=== PATIENT | male | born 1960 | race Caucasian/White ===

== ENCOUNTER 2021-03-22 13:57 | Outpatient (CLI) | payer OTHER, SELFPAY ==
--- NOTE | ~2021-03-22 | US_ITS ---
EXAMINATION: US art doppler w press LE BI DATE: 03/22/2021 15:16 INDICATION: Ascites of skin. Right anterior calf and bilateral foot pain. Smoker. TECHNIQUE: Segmental pressures and plethysmographic and Doppler waveforms of the brachial and lower e xtremity arteries were obtained. COMPARISON: None. FINDINGS: Right and left brachial artery pressures of 131 mm Hg and 132 mm Hg, respectively, are concordant (no rmal difference <= 30 mmHg). The right and left high-thigh pressure indices are 0.96 and 0.98, respec tively (normal > 1.2). The right ankle-brachial index (PEDRO) is 1.10 (normal >= 0.9-1). The right great toe-brachial index (T BI) is 0.92 (normal >= 0.6-0.8). The right lower extremity segmental pressure gradients are normal (n ormal gradients <= 20-30 mmHg between adjacent levels on the same leg or the same levels on the two l egs). Arterial waveforms are triphasic at the right superficial and popliteal arteries and biphasic a t the right common femoral, posterior tibial and dorsalis pedis arteries with brisk systolic upstroke s throughout. The left PEDRO is 1.14. The left TBI is 1.12. The left lower extremity segmental pressure gradients are normal. Arterial waveforms are triphasic at the left, femoral, superficial femoral and popliteal art eries and biphasic at the left posterior tibial and dorsalis pedis arteries with brisk systolic upstr okes throughout. IMPRESSION: 1. Normal PEDRO's and TBI's bilaterally. No significant occlusive disease. Reviewed, dictated and finalized at location A.
== END 2021-03-22 13:58 | disposition home or self-care (01) ==
LOC: ANHIMG 14:01
PROVIDERS: PCP Family Medicine; Visit Provider Nurse Practitioner Family
DX: R20.0 Anesthesia of skin (principal); R20.2 Paresthesia of skin; Z72.0 Tobacco use
CPT/HCPCS: 93923

== ENCOUNTER 2021-11-06 00:38 | Day surgery (SDC) | payer OTHER, SELFPAY ==
[2021-10-23 13:42] VITALS: BMI 21.8
[2021-11-06 09:16] VITALS: BMI 20.2
--- NOTE | 2021-11-06 09:18 | WPDANESEPPF ---
Anes - Initial Pre Proc Eval Procedure: Operation Date: 11/06/21 10:30 Proposed Procedures p Screening Colonoscopy - Akshat Segura MD Date/Time: 11/06/21 09:18 Surgeon: Akshat Segura MD Pre Op Diagnosis: hx of colon polyps Patient Data Age: 61 Gender: M Height: 1.68 m Weight: 61.3 kg Allergies Allergy/AdvReac Type Severity Reaction Status Date / Time Sulfa (Sulfonamide Allergy Unknown Unknown Verified 10/23/21 13:59 Antibiotics) Home Medications Medication Instructions Recorded Confirmed Type No Home Medications 10/23/21 10/23/21 History Patient hx anesthesia problems: none Family hx anesthesia problems: none Results Review: All pre-operative results and documents have been reviewed as part of the pre-operative evaluation. [facility] Past Medical History Medical History Adult BMI 19-24 kg/sq m AK (actinic keratosis) Hepatitis B virus serologic status unknown SK (seborrheic keratosis) Family History Family History Father Cerebrovascular accident Social History Social History Smoking packs per day: 2 Smoking cigarettes per day: 40.0 Years smoked: 40 Smoking pack-years: 80.00 Smoking status: Current every day smoker Tobacco type: cigarettes Second hand tobacco smoke exposure: No Alcohol intake: current Drinks per week: 80 Alcohol use details: 10-12 beers daily Substance use: current Substance use type: marijuana Other substance usage details: occasional use, not daily Living arrangements: with family Gender identity (if verbalized by the patient): Male Sexual Orientation (if Verbalized by the Patient): Straight or Heterosexual Spiritual care concerns: No Anes - Eval Final PreProcedure Day of Procedure 11/06/21 09:18 Patient weight: normal Heart: regular rate and rhythm Lungs: clear to auscultation Airway: Mallampati scale class II Neurological: alert and oriented Last oral intake: >/= 8 hours ASA classification: III Emergent: no Anesthetic plan: proceed Anesthesia type and monitoring: general GIVS and standard monitoring Results Review: All pre-operative results and documents have been reviewed as part of the pre-operative evaluation. Informed Consent: The patient's anesthetic plan and its attendant risks and benefits were discussed with the patient/family/POA. Questions were solicited and answers provided to the satisfaction of the patient/family/POA.
[2021-11-06 09:27] VITALS: BP 147/80; PULSE 66; RESP 18; TEMP 36.1; O2SAT 100
[2021-11-06] MEDS: LACTATED RINGERS 1,000 ML 150 ML IV CONT (09:36)
--- NOTE | 2021-11-06 09:59 | PM.IMHP ---
H&P: HPI History of Present Illness Date/Time: 11/06/21 09:59 Chief Complaint: History of colon polyps. Narrative: This is a 61-year-old white male patient referred for because of prior history of colon polyps. Patient reports he has had diarrhea for more than 3 years. He reports over that 3 year intervals lost perhaps 25lb. He states his appetite is somewhat diminished. He denies any bleeding. His family history is noncontributory. Patient presents today for neoplasia screening because of a history of colon polyp removed in 2016. Review of Systems Review of Systems: review of systems noncontributory. [facility] Past Medical History Medical History Adult BMI 19-24 kg/sq m AK (actinic keratosis) Hepatitis B virus serologic status unknown SK (seborrheic keratosis) Family History Family History Father Cerebrovascular accident Social History Social History Smoking packs per day: 2 Smoking cigarettes per day: 40.0 Years smoked: 40 Smoking pack-years: 80.00 Smoking status: Current every day smoker Tobacco type: cigarettes Second hand tobacco smoke exposure: No Alcohol intake: current Drinks per week: 80 Alcohol use details: 10-12 beers daily Substance use: current Substance use type: marijuana Other substance usage details: occasional use, not daily Living arrangements: with family Gender identity (if verbalized by the patient): Male Sexual Orientation (if Verbalized by the Patient): Straight or Heterosexual Spiritual care concerns: No Meds Home Medications and Allergies Home Medications Medication Instructions Recorded Confirmed Type No Home Medications 10/23/21 10/23/21 History Allergies Allergy/AdvReac Type Severity Reaction Status Date / Time Sulfa (Sulfonamide Allergy Unknown Unknown Verified 10/23/21 13:59 Antibiotics) Vital Signs Vital Signs - 24 hr 11/06/21 09:27 Temperature 97.0 F L Pulse Rate 66 Respiratory Rate 18 Blood Pressure 147/80 H Pulse Oximetry 100 Oxygen Delivery Room Air Exam Narrative: Physical exam reveals patient to be alert. Vital signs stable. HEENT exam is unremarkable. Patient is anicteric. Lungs are clear to auscultation and percussion. Heart is without murmur or extra sounds. Abdominal exam bowel sounds are present soft nontender with no organomegaly. Digital external rectal exam is normal. Assessment and Plan Assessment and plan (1) History of colon polyps: Code(s): Z86.010 - Personal history of colonic polyps Status: Acute Assessment and Plan: Patient presents today for screening colonoscopy because of prior history of tubulovillous adenoma in 2016. Further recommendations will be given after endoscopy. Follow-up typically at 5 year intervals is encouraged.
[2021-11-06] MEDS: SIMETHICONE ORAL SUSPENSION 20 MG/0.3 ML 30 ML BOTTLE 0.6 ML IRRIGATION (10:16)
[2021-11-06 10:35] VITALS: BP 137/88; PULSE 71; RESP 26; O2SAT 100
[2021-11-06 10:45] VITALS: BP 159/99; PULSE 65; RESP 20; O2SAT 100
[2021-11-06 10:55] VITALS: BP 161/94; PULSE 71; RESP 20; O2SAT 98
== END 2021-11-06 10:58 | disposition home or self-care (01) ==
PROVIDERS: PCP Family Medicine; Visit Provider Internal Medicine Gastroenterology
PROC: 0DJD8ZZ Inspection of Lower Intestinal Tract, Via Natural or Artificial Opening Endoscopic (ICD-10-PCS; CPT 45378; principal; 2021-11-06 10:30)
DX: K59.1 Functional diarrhea (principal); D12.5 Benign neoplasm of sigmoid colon; K64.8 Other hemorrhoids; L57.0 Actinic keratosis; L82.1 Other seborrheic keratosis; B19.10 Unspecified viral hepatitis B without hepatic coma; F17.210 Nicotine dependence, cigarettes, uncomplicated; F12.90 Cannabis use, unspecified, uncomplicated
CPT/HCPCS: 45385; 45380; 88305; J2704; J7120

== ENCOUNTER 2022-10-09 12:12 | Outpatient (CLI) | payer OTHER, SELFPAY ==
--- NOTE | ~2022-10-09 | XR_ITS ---
XR chest 2V 10/09/2022 12:46 Indication: Hemoptysis. Procedure: 2 view chest Comparison: 11/09/2016 Findings: There is extensive right upper lobe consolidation, consistent with pneumonia. Possible asso ciated cavitation. Heart size normal. Left lung clear. No pneumothorax. Impression: 1: Extensive right upper lobe consolidation, consistent with pneumonia with possible cavitation. Reviewed, dictated and finalized at location L. Impression: 1: Extensive right upper lobe consolidation, consistent with pneumonia with pos sible cavitation.
--- NOTE | ~2022-10-09 | XR_ITS ---
XR femur RT min 2V 10/09/2022 12:45 Indication: Bilateral leg pain Procedure: 2 views right femur Comparison: No prior studies for comparison. Findings: There is anatomic alignment. Mild osteoarthritis of the right hip. No fracture, subluxation or dislocation. There are vascular calcifications. No foreign bodies. Impression: 1: No acute bone or joint abnormality. Reviewed, dictated and finalized at location B. Impression: 1: No acute bone or joint abnormality.
--- NOTE | ~2022-10-09 | XR_ITS ---
XR femur LT min 2V 10/09/2022 12:46 Indication: Leg pain. Procedure: 2 views left femur Comparison: No prior studies for comparison. Findings: There is anatomic alignment. Mild osteoarthritis of the left hip. No fracture, subluxation or dislocation. There are vascular calcifications. No foreign bodies. Impression: 1: No acute bone or joint abnormality. Reviewed, dictated and finalized at location B. Impression: 1: No acute bone or joint abnormality.
[2022-10-09 13:00] LABS: Basophils Absolute Auto 0.1 K/mm3 (0.0-0.1); Basophils Percent Auto 0.3 % (0.2-1.2); Eosinophils Absolute Auto 0.2 K/mm3 (0-0.3); Eosinophils Percent Auto 1.1 % (0-4.4); Hematocrit 36.3 % (42.0-52.0); Hemoglobin 11.4 g/dL (14.0-18.0); Immature Granulocyte Absolute 0.11 K/mm3 (0.00-0.031); Immature Granulocyte Percent A 0.6 % (0-0.5); Lymphocytes Absolute Auto 1.41 K/mm3 (0.9-3.2); Mean Corpuscular HGB Conc 31.4 g/dl (32-36); Mean Corpuscular Volume 92.4 fl (80-100); Mean Platelet Volume 8.8 fl (7.4-10.4); Monocytes Absolute Auto 1.1 K/mm3 (0.1-0.6); Monocytes Percent Auto 6.5 % (2.6-8.5); Neutrophils Absolute Auto 14.7 K/mm3 (1.3-6.7); Neutrophils Percent Auto 83.5 % (45.5-73.1); Platelet Count Result 374 k/mm3 (150-375); Red Blood Count 3.93 M/mm3 (4.6-6.20); Red Cell Distribution Width 13.7 % (11.5-14.5); White Blood Count 17.6 K/mm3 (4.5-10.0)
[2022-10-09 13:11] LABS: Prothrombin Time 13.7 Seconds (11.1-14.7)
[2022-10-09 13:12] LABS: Partial Thromboplastin Time 37.9 SECONDS (22.3-36.8)
[2022-10-09 13:17] LABS: Alanine Aminotransferase 32 U/L (6-50); Alkaline Phosphatase 119 U/L (38-126); Anion Gap 11 mmol/L (8-16); Aspartate Amino Transferase 24 U/L (17-59); Bilirubin,Total 0.6 mg/dL (0.2-1.3); Blood Urea Nitrogen 10 mg/dL (9-20); Calcium 8.8 mg/dL (8.4-10.2); Carbon Dioxide 29 mmol/L (22-30); Chloride 91 mmol/L (98-107); Estimated Glomerular Filt Rate > 60; Glucose 119 mg/dL (65-110); Potassium 4.1 mmol/L (3.4-5.0); Sodium 131 mmol/L (137-145)
[2022-10-09 13:41] LABS: Vitamin D 25 Hydroxy 22.9 ng/mL
[2022-10-13 14:41] LABS: GGT 31 U/L (3-70)
== END 2022-10-09 12:13 | disposition home or self-care (01) ==
LOC: ANHLAB 12:15
PROVIDERS: PCP Family Medicine; Visit Provider Family Medicine
DX: R04.2 Hemoptysis (principal); M79.661 Pain in right lower leg; M79.662 Pain in left lower leg; R63.4 Abnormal weight loss; F10.10 Alcohol abuse, uncomplicated; R58 Hemorrhage, not elsewhere classified; Z12.5 Encounter for screening for malignant neoplasm of prostate; E55.9 Vitamin D deficiency, unspecified; R91.8 Other nonspecific abnormal finding of lung field
CPT/HCPCS: 36415; 71046; 73552; 80053; 82306; 82746; 82977; 84153; 84443; 85025; 85610; 85730; G0103

== ENCOUNTER 2022-10-25 10:24 | Outpatient (CLI) | payer OTHER, SELFPAY ==
--- NOTE | ~2022-10-25 | XR_ITS ---
XR chest 2V DATE: 10/25/2022 10:41 INDICATION: Pneumonia TECHNIQUE: PA and lateral views 10/09/2022 COMPARISON: PA and lateral chest 11/09/2016 two-view chest FINDINGS: There is prominent right apical capping. There is prominent patchy consolidating infiltrate in the right upper lobe, mildly improved since 10/09/2022. The remaining lung chamberlain are clear of infiltrate or consolidation. Pulmonary hyperinflation, increased retrosternal airspace, relative flattening the diaphragm, consist ent with COPD. No pleural effusion or pulmonary vascular congestion or pneumothorax is detected. Mild dextroscoliosis of the thoracic spine. Degenerative spurring of the thoracic spine. Osteopenia. IMPRESSION: Mild improvement of patchy right upper lobe consolidation since 10/09/2022 Reviewed, dictated and finalized at location L. IMPRESSION: Mild improvement of patchy right upper lobe consolidation since 09/18
[2022-10-25 12:09] LABS: Prostate Specific Antigen 7.8 ng/mL (< OR = 4.0)
[2022-10-25 13:24] LABS: Folic Acid 8.3 ng/mL (2.76->20)
== END 2022-10-25 10:25 | disposition home or self-care (01) ==
LOC: ANHLAB 10:24
PROVIDERS: PCP Family Medicine; Visit Provider Nurse Practitioner Family
DX: D64.9 Anemia, unspecified (principal); J18.9 Pneumonia, unspecified organism; Z12.5 Encounter for screening for malignant neoplasm of prostate
CPT/HCPCS: 36415; 71046; 82746; 84153; G0103

== ENCOUNTER 2022-11-13 10:59 | Outpatient (CLI) | payer OTHER, SELFPAY ==
--- NOTE | ~2022-11-13 | XR_ITS ---
Clinical Indication: Pneumonia PA and lateral views of the chest: Comparison: 10/25/2022 Findings: There is persistent right upper lobe airspace consolidation, compatible with pneumonia. Lef t lung clear.. Cardiomediastinal silhouette is within normal limits. Bones and soft tissues are unre markable. Impression: Persistent right upper lobe pneumonia. Follow-up to radiographic resolution is advised. Reviewed, dictated and finalized at location . Impression: Persistent right upper lobe pneumonia. Follow-up to radiographic resolution is advised.
== END 2022-11-13 11:00 | disposition home or self-care (01) ==
LOC: ANHIMG 11:01
PROVIDERS: PCP Family Medicine; Visit Provider Physician Assistant Medical
DX: J18.9 Pneumonia, unspecified organism (principal)
CPT/HCPCS: 71046

== ENCOUNTER 2022-12-05 13:45 | Outpatient (CLI) | payer OTHER, SELFPAY ==
--- NOTE | ~2022-12-05 | CT_ITS ---
Clinical Indication: Pneumonia CT Scan of the Chest with Contrast: Technique: Contiguous sections were acquired throughout the chest after intravenous administration of 75 cc of Omnipaque 350. Dose reduction technique was used on this scan by utilizing automated exposu re control and iterative reconstruction technique. The dose-length product (DLP) was 158.10 mGy-cm. Findings: There is no evidence of any significant mediastinal, hilar or axillary lymphadenopathy. There is no f illing defect in the pulmonary arterial tree to suggest pulmonary embolus. There is no evidence of ao rtic dissection or aneurysm. There are atherosclerotic calcifications of the aorta and coronary arter ies There is no evidence of pleural or pericardial effusion. There is probable right apical scarring and focal bullous change, with focal cystic bronchiectatic ch maria eugenia. There are several areas of associated spiculated focal density/nodularity. There is a separate 2 cm nodular opacity in the medial right lower lobe in the infrahilar region (axial image 66). There is mild to moderate upper lobe emphysema bilaterally. Images through the upper abdomen reveal no abnormalities. Impression: 2 cm nodular masslike lesion in the right lower lobe in the infrahilar region. Diagnostic considerati ons include both infectious and neoplastic etiologies. Probable right apical scarring and focal bullous/cystic bronchiectatic change. There are several asso ciated focal areas of spiculated nodularity in this region, which are indeterminate. The spiculated a reas could reflect postinflammatory scarring, infection, or neoplastic disease. Consider PET/CT to evaluate the above findings, especially the right upper lobe lesions, for hypermet abolic activity. In regards to the right lower lobe lesion, consider short-term follow-up exam after interval therapy versus attempted tissue sampling, although the location of the lesion is somewhat ch allenging for percutaneous biopsy. Reviewed, dictated and finalized at [facility]. Impression: 2 cm nodular masslike lesion in the right lower lobe in the infrahilar region. Diagnostic considerations include both infectious and neoplastic etiologies. Probable right apical scarring and focal bullous/cystic bronchiectatic change. There are several associated focal areas of spiculated nodularity in this regio n, which are indeterminate. The spiculated areas could reflect postinflammatory scarring, infection, or neoplastic disease. Consider PET/CT to evaluate the above findings, especially the right upper lobe lesions, for hypermetabolic activity. In regards to the right lower lobe lesio n, consider short-term follow-up exam after interval therapy versus attempted t issue sampling, although the location of the lesion is somewhat challenging for percutaneous biopsy.
[2022-12-05 14:05] LABS: Estimated Glomerular Filt Rate > 60
== END 2022-12-05 13:46 ==
LOC: MICIMG 13:46
PROVIDERS: PCP Family Medicine; Visit Provider Physician Assistant Medical
DX: J18.9 Pneumonia, unspecified organism (principal); R91.8 Other nonspecific abnormal finding of lung field
CPT/HCPCS: 71260; Q9967

== ENCOUNTER 2022-12-10 07:30 | Outpatient (CLI) | payer OTHER, SELFPAY ==
--- NOTE | ~2022-12-10 | PE_ITS ---
EXAMINATION: PET skull to mid thigh DATE: 12/10/2022 10:26 INDICATION: Abnormal findings of lung TECHNIQUE: Blood glucose level was 106 mg/dL. 9.748 mCi of 18-fluorodeoxyglucose (18-FDG) was adminis tered i.v. Low dose computed tomography (CT) images were acquired from the base of the brain to the p roximal thighs for attenuation correction and anatomic localization. Positron emission tomography (PE T) images were acquired in the same distribution beginning 72 minutes after injection. Images includi ng fused PET/CT images were reconstructed in axial, coronal, and sagittal planes. Automated exposure control technique was employed. The dose-length product was 481.21mGy-cm. COMPARISON: None FINDINGS: Head/neck: There is symmetric increased activity in the oral cavity, palatine tonsils, parotid glands, submandi bular glands, laryngeal muscles and ocular muscles without CT correlate, likely physiologic. No patho logically enlarged cervical lymphadenopathy or suspicious foci of increased FDG uptake in the visuali zed head or neck. Chest: Moderate upper lung predominant emphysema. There is mild to moderate increased uptake with maximal PARADA V of 9.0 associated with a spiculated nodule at the parahilar/posteromedial right lower lobe. The nod ule previously measured 2.1 x 1.6 cm and appears slightly decreased in size measuring 2.0 x 1.1 cm in the current study now with small region of central lucency. Relatively stable appearance of a region of bandlike consolidation lung which are a few more focal spiculated nodular opacities in the right upper lobe. There are couple small, less than 1 cm foci of focal mild increased FDG uptake with maxim al SUV of 5.8 and 7.5 respectively located within the more medial paramediastinal bandlike region of consolidation. No evident specific correlate to the sulci of increased activity relative to the remai nder of the bandlike consolidation. There is a second focus of mild increased uptake with maximal SUV of 3.5 associated with one of the more nodular densities measuring approximately 12 mm centered on i mage 66. Finally there is a subtle focus of mild increased uptake with maximal SUV of 3.9 associated with an approximately 1 cm ill-defined groundglass opacity at the posterior segment of the right uppe r lobe along the major fissure. Mild dependent atelectasis in the bilateral lower lobes. No pulmonary edema or pleural effusion. Heart size is normal. Atherosclerotic coronary artery calcific location. No pericardial effusion. Atherosclerotic calcific lesion along the normal caliber thoracic aorta. No pathologically enlarged or abnormally FDG avid thoracic lymphadenopathy. Abdomen/pelvis/proximal thighs: Physiologic renal accumulation and excretion of FDG activity in the kidneys, bladder and along portio ns of ureters. Prominent nonspecific wall thickening of the bladder. Normal degree and heterogenous p attern of increased uptake throughout the liver without radiologic correlate or dominant FDG avid les ion. The gallbladder, pancreas, spleen and bilateral adrenal glands are normal. Mild to moderate upta ke scattered throughout the bowels without radiologic correlate, also likely physiologic. No other ab normal foci of increased FDG uptake or pathologically enlarged lymphadenopathy in the abdomen, pelvis or proximal thighs. Prominent atherosclerotic calcification along the right common femoral artery wh ich may be hemodynamically significant. Musculoskeletal: No suspicious lytic, blastic or FDG avid bone lesions identified. IMPRESSION: 1. Mild to moderate increased uptake associated with a now 2.0 x 1.1 cm spiculated nodule in the righ t lower lobe. The nodule appears slightly smaller and with new central lucency when compared with the earlier study suggesting an infectious or inflammatory etiology although malignancy cannot be absolu tely excluded. Consider short interval follow-up low-dose noncon
[2022-12-10 07:52] LABS: Glucose Point of Care 106 mg/dl (65-105)
== END 2022-12-10 07:31 | disposition home or self-care (01) ==
LOC: ANHIMG 07:37
PROVIDERS: PCP Family Medicine; Visit Provider Physician Assistant Medical
DX: R91.8 Other nonspecific abnormal finding of lung field (principal); R97.20 Elevated prostate specific antigen [PSA]; R04.2 Hemoptysis; R63.4 Abnormal weight loss
CPT/HCPCS: 78815; A9552

== ENCOUNTER 2023-02-13 11:05 | Outpatient (CLI) | payer OTHER, SELFPAY ==
--- NOTE | ~2023-02-13 | XR_ITS ---
XR chest 2V 02/13/2023 11:21 Indication: Covid 19 infection Procedure: 2 view chest Comparison: 11/13/2022 and 10/25/2022 Findings: Heart size normal. Interval near complete resolution of right upper lobe pneumonia. Left aida ng clear. No pleural effusion, edema or pneumothorax. There is right apical pleural thickening/scarri ng. Impression: 1: Near-complete resolution of right upper lobe pneumonia. Reviewed, dictated and finalized at location B. Impression: 1: Near-complete resolution of right upper lobe pneumonia.
== END 2023-02-13 11:06 | disposition home or self-care (01) ==
PROVIDERS: PCP Family Medicine; Visit Provider Nurse Practitioner Family
DX: U07.1 COVID-19 (principal); J12.82 Pneumonia due to coronavirus disease 2019
CPT/HCPCS: 71046

== ENCOUNTER 2023-08-29 23:07 | Emergency (ER) | payer MEDICARE, SELFPAY ==
--- NOTE | ~2023-08-29 | CT_ITS ---
EXAMINATION: CT abdomen pelvis w con DATE: 08/30/2023 01:43 INDICATION: Abdominal pain. Bloating. TECHNIQUE: Computed tomography (CT) of the abdomen and pelvis was performed with 100 mL Omnipaque 350 intravenous contrast. Automated exposure control and iterative reconstruction technique were employe d. The dose-length product was 216.16 mGy-cm. COMPARISON: None. FINDINGS: The visualized portions of the lung bases demonstrate mild atelectasis. No pleural effusion . The heart size is normal. No pericardial effusion. The liver, gallbladder, spleen, adrenal glands, and right kidney are normal. There are cysts in left kidney measuring up to 4 mm. There are calcifica tions in the pancreas, consistent with chronic pancreatitis. There is calcified atherosclerosis of th e aorta and many of the other arteries. The prostate is mildly enlarged. There are no dilated loops o f bowel. The appendix is normal. There are no pathologically enlarged lymph nodes. There is no free i ntraperitoneal fluid. There is moderate lumbar spondylosis. IMPRESSION: 1. No etiology for the patient's symptoms. Reviewed, dictated and finalized at location A.
[2023-08-29 23:08] VITALS: BP 165/91; PULSE 86; RESP 18; TEMP 36.3; O2SAT 98
--- NOTE | 2023-08-30 00:28 | ECG_ITS ---
SEE SCANNED COPY FOR CONFIRMED REPORT MTDD
--- NOTE | 2023-08-30 00:40 | ED.GENADULT ---
HPI - General Adult General Chief complaint: Abdominal Pain Stated complaint: lower abd pain x 2 hours with nausea Time Seen by Provider: 08/29/23 23:53 History of Present Illness HPI narrative: this is a 63-year-old male presenting for abdominal pain and fullness for 2 hours. Patient says that 9:00 p.m. he developed achy pain in the bottom of his abdomen. This 10 out 10 intensity and constant. He has never had this feeling before there are no exacerbating or alleviating factors. He did have 1 episode of nausea and vomiting. He denies fevers chills chest pain difficulty breathing. He has had a bowel movement today that was both constipation and diarrhea. Patient is a daily drinker. He does not remember the last day without alcohol. Related Data Allergies Allergy/AdvReac Type Severity Reaction Status Date / Time Sulfa (Sulfonamide Allergy Unknown Unknown Verified 06/05/23 07:55 Antibiotics) [facility] Past Medical History Medical History Adult BMI 19-24 kg/sq m AK (actinic keratosis) BPH w urinary obs/LUTS Ecchymosis Extraction of tooth needed Hepatitis B virus serologic status unknown Nocturia Pneumonia SK (seborrheic keratosis) Surgical History Surgical History Hx of tooth extraction Family History Family History Father Cerebrovascular accident Elevated prostate specific antigen (PSA) Mother No problems noted. Sibling Elevated prostate specific antigen (PSA) Diabetes mellitus Social History Social History Smoking packs per day: 2 Smoking cigarettes per day: 40.0 Years smoked: 40 Smoking pack-years: 80.00 Smoking status: Current every day smoker (1/2-1 ppd) Tobacco type: cigarettes Second hand tobacco smoke exposure: No Alcohol intake: current Drinks per week: 80 Alcohol use details: 10-12 beers daily Substance use: current Substance use type: marijuana Other substance usage details: occasional use, not daily Do You Feel Safe in your Home?: Yes Lack of Transportation: No Lack of Food: Never True Current Housing: I Have Housing Concerned About Future Housing: No Difficulty Paying Gas/Electric Bills: No Difficulty Paying for Meds: No Currently Unemployed: No Education: Trade/Vocational Certificate Difficulty w/ Childcare or Family Care: No Living arrangements: with family Occupation/Education: retired 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 Head: atraumatic. EYES: EOMI, NOSE: Atraumatic NECK: Trachea midline RESPIRATORY: No increased rate of breathing CARDIOVASCULAR: RRR, ABDOMINAL: Distended, voluntary guarding, no focal tenderness MUSCULOSKELETAl: No obvious deformities NEURO: Alert. Moving 4/4 extremities SKIN:: Warm, dry. Normal color PSYCHIATRIC: Normal affect Course Vital Signs Vital signs: Vital Signs Temperature 97.4 F L 08/29/23 23:08 Pulse Rate 86 08/29/23 23:08 Respiratory Rate 18 08/29/23 23:08 Blood Pressure 165/91 H 08/29/23 23:08 Pulse Oximetry 98 08/29/23 23:08 Oxygen Delivery Room Air 08/29/23 23:08 Temperature 97.4 F L 08/29/23 23:08 Pulse Rate 87 08/30/23 04:16 Respiratory Rate 15 08/30/23 04:16 Blood Pressure 158/98 H 08/30/23 04:16 Pulse Oximetry 98 08/30/23 04:16 Oxygen Delivery Room Air 08/29/23 23:08 Medical Decision Making MDM Narrative Medical decision making narrative: -Course: 63-year-old male presenting with 2 hours of abdominal pain and abdominal distension. Stat Rad- CT showed no acute findings out
[2023-08-30 00:48] LABS: Basophils Absolute Auto 0.1 K/mm3 (0.0-0.1); Basophils Percent Auto 0.5 % (0.2-1.2); Eosinophils Absolute Auto 0.2 K/mm3 (0-0.3); Eosinophils Percent Auto 1.8 % (0-4.4); Hematocrit 42.9 % (42.0-52.0); Hemoglobin 15.1 g/dL (14.0-18.0); Immature Granulocyte Absolute 0.05 K/mm3 (0.00-0.031); Immature Granulocyte Percent A 0.5 % (0-0.5); Lymphocytes Percent Auto 14.1 % (18.3-44.2); Mean Corpuscular HGB Conc 35.2 g/dl (32-36); Mean Corpuscular Hemoglobin 33.9 pg (26-34); Mean Corpuscular Volume 96.2 fl (80-100); Mean Platelet Volume 9.2 fl (7.4-10.4); Monocytes Absolute Auto 0.6 K/mm3 (0.1-0.6); Monocytes Percent Auto 6.6 % (2.6-8.5); Neutrophils Percent Auto 76.5 % (45.5-73.1); Platelet Count Result 226 k/mm3 (150-375); Red Blood Count 4.46 M/mm3 (4.6-6.20); Red Cell Distribution Width 11.8 % (11.5-14.5); White Blood Count 9.2 K/mm3 (4.5-10.0)
[2023-08-30 00:50] LABS: Alanine Aminotransferase 17 U/L (6-50); Alkaline Phosphatase 87 U/L (38-126); Anion Gap 11 mmol/L (4-12); Aspartate Amino Transferase 31 U/L (17-59); Bilirubin,Total 0.5 mg/dL (0.2-1.3); Blood Urea Nitrogen 9 mg/dL (9-20); Calcium 9.6 mg/dL (8.4-10.2); Carbon Dioxide 26 mmol/L (22-30); Chloride 91 mmol/L (98-107); Estimated CRCL calculation 99 ml/min; Estimated Glomerular Filt Rate > 60; Glucose 99 mg/dL (65-110); Sodium 128 mmol/L (137-145)
[2023-08-30] MEDS: SODIUM CHLORIDE 0.9% IV 1,000 ML 999 ML IV CONT (00:50)
[2023-08-30 00:59] LABS: Ethanol 71 mg/dL (<10); NT Pro B Type Natriuretic Pept 225 pg/mL (19.9-100)
[2023-08-30 01:00] LABS: Lipase 291 U/L (23-300); Magnesium 2.1 mg/dL (1.6-2.3)
[2023-08-30 01:07] VITALS: BP 165/97; PULSE 96; RESP 14; O2SAT 95
[2023-08-30 01:18] LABS: Lactic Acid Reflex 1.7 mmol/L (0.7-2.0)
[2023-08-30 01:22] LABS: INR 0.9; Prothrombin Time 12.2 Seconds (11.1-14.7)
[2023-08-30 01:23] LABS: Partial Thromboplastin Time 33.1 Seconds (22.3-36.8)
[2023-08-30 01:27] LABS: Appearance Urine Clear (Clear); Bacteria Urine None Seen /hpf; Bilirubin Urine Negative (Negative); Blood Urine Negative (Negative); Color Urine Yellow (Yellow); Glucose Urine UA Negative (Negative); Ketones Urine Trace mg/dL (Negative); Leukocyte Esterase Ur Negative LEU/UL (Negative); Nitrate Urine Negative (Negative); Non Pathogenic Casts 0-2; Protein Urine Trace mg/dL (Negative); RBC Urine 0-2 /hpf (0-2); Specific Grav Ur 1.014 (1.001-1.035); Squamous Epithelial Cell Urine None Seen /hpf (Few); WBC Urine 0-5 /hpf (0-3)
[2023-08-30 01:35] LABS: Add Urine Microscopic? YES
[2023-08-30 01:39] LABS: Amphetamine Screen Urine Negative (Negative); Barbiturate Screen Urine Negative (Negative); Benzodiazepines Screen Urine Negative (Negative); Cannabinoid Screen Urine Positive (Negative); Cocaine Screen Urine Negative (Negative); Methadone Screen Urine Negative (Negative); Opiate Screen Urine Negative (Negative); Phencyclidine Screen Urine Negative (Negative)
[2023-08-30 04:16] VITALS: BP 158/98; PULSE 87; RESP 15; O2SAT 98
[2023-08-30 05:31] VITALS: BP 155/93; PULSE 84; RESP 19; O2SAT 98
== END 2023-08-30 05:33 | disposition home or self-care (01) ==
PROVIDERS: Emergency Provider Emergency Medicine; PCP Family Medicine
DX: R10.30 Lower abdominal pain, unspecified (principal); N40.1 Benign prostatic hyperplasia with lower urinary tract symptoms; N13.8 Other obstructive and reflux uropathy; Z87.01 Personal history of pneumonia (recurrent); F17.210 Nicotine dependence, cigarettes, uncomplicated; Z79.899 Other long term (current) drug therapy
CPT/HCPCS: 36415; 74177; 80053; 80307; 81001; 83605; 83690; 83735; 83880; 85025; 85610; 85730; 93005; 96360; 96361; 99284; J7030; Q9967

== ENCOUNTER 2024-09-15 12:36 | Outpatient (CLI) | payer MEDICARE, BC, SELFPAY ==
--- NOTE | ~2024-09-15 | CT_ITS ---
CT Scan of the Chest without Contrast: Clinical Indication: Lung cancer screening, nicotine dependence Technique: Contiguous sections were acquired throughout the chest without intravenous contrast. Dose reduction technique was used on this scan by utilizing automated exposure control and iterative recon struction technique. The dose-length product (DLP) was 64.84 mGy-cm. COMPARISON: 12/05/2022 Findings: There is no evidence of any significant mediastinal, hilar or axillary lymphadenopathy. The mediastin al soft tissues appear normal. There is no evidence of pleural or pericardial effusion. Right apical scarring is present, with decreased consolidation as compared to prior exam. Previously noted right lower lobe airspace opacities are resolved. There is mild to moderate upper lobe emphysem a. Images through the upper abdomen reveal no abnormalities. Impression: Lung RADS 2: Benign appearance. 12 month follow-up screening CT advised. Reviewed, dictated and finalized at [facility]. Impression: Lung RADS 2: Benign appearance. 12 month follow-up screening CT advised.
== END 2024-09-15 12:37 | disposition home or self-care (01) ==
PROVIDERS: PCP Family Medicine; Visit Provider Nurse Practitioner Family
DX: Z12.2 Encounter for screening for malignant neoplasm of respiratory organs (principal); Z87.891 Personal history of nicotine dependence; R91.1 Solitary pulmonary nodule; R91.8 Other nonspecific abnormal finding of lung field
CPT/HCPCS: 71271